=== PATIENT | male | born 1995 ===

== ENCOUNTER 2019-05-26 10:21 | Emergency (ER) | payer BC ==
--- OUTSIDE RECORDS SUMMARY | 2019-05-26 10:32 | XMS REPORT ---
:1995 Author Organization [facility] Care Team Providers Name Role Phone CHAR PINEDA Primary Care Physician Unavailable Allergies, Adverse Reactions, Alerts Allergy Code CodeSystem Reaction Severity Criticality Status Start Substance Date Moderate Medications Medication Medication Medication Start Stop Route Dose Status Fill Code CodeSystem Date Date Instructions Lexapro 046381 RxNorm 2019-01 oral 10 mg 1 active Take 1 tablet -21 tablet by mouth once once a a day for 30 day day(s) Problems Problem Name Code CodeSystem Alternate Alternate Start End Status Narrative Code CodeSystem Date Date Depressive 11668137 SNOMED-CT Active episode, 3- unspecified Depressive 72085022 SNOMED-CT Active episode, 3-22 unspecified Unspecified 84515210 SNOMED-CT 2018-03 Active anxiety -19 disorder Relevant diagnostic tests/laboratory data Narrative No Information Procedures Procedure Code CodeSystem Target Date of Status Service Device Device Device Name Site Procedure Delivery Code Name UID Location Psychotherap [id number] SNOMED-CT () 2018-06-18 complete Mental y, 45 04 d Health- minutes with [address], [id number] [id number] SNOMED-CT () 2018-11-13 complete Mental d Health- [address], [id number] [phone] SNOMED-CT () 2019-03-26 complete Mental d Health- [address], [id number] [phone] Psychotherap [id number] SNOMED-CT () 2018-09-05 complete Mental y, 45 04 d Health- minutes with [address], [id number] [phone] SNOMED-CT () 2019-01-15 complete Mental d Health- [facility], [phone] [phone] Office [place] [id number] SNOMED-CT () 2019-02-26 complete Mental other 6 d Health- outpatient [facility]elle visit for [address], [facility], established [id number] patient, [phone] which requires at least 2 of these 3 culver components: A problem focused history; A problem focused examination; Straightforw sari medical decision making. Counselin Office or [id number] SNOMED-CT () 2019-04-23 complete Mental other 6 d Health- outpatient [facility] visit for [address], [facility], established [id number] patient, [phone] which requires at least 2 of these 3 culver components: A problem focused history; A problem focused examination; Straightforw sari medical decision making. Counselin SNOMED-CT () 2018-12-11 complete Mental d Health- [address], [id number] [phone] Psychotherap 794184 SNOMED-CT () 2018-07-11 complete Mental y, 45 04 d Health- minutes with [facility] patient [address], [phone] [phone] SNOMED-CT () 2018-07-30 complete Mental d Health- [address], [id number] [phone] SNOMED-CT () 2018-08-22 complete Mental d Health- [address], [id number] [phone] Psychotherap [id number] SNOMED-CT () 2019-01-01 complete Mental y, 45 04 d Health- minutes with [facility] patient [address], [id number] [phone] SNOMED-CT () 2018-06-11 complete Mental d Health- [address], [id number] [phone] Psychiatric 547081 SNOMED-CT () 2019-01-31 complete Mental diagnostic 85 d Health- evaluation [facility] with medical [address], [phone] [phone] SNOMED-CT () 2018-11-27 complete Mental d Health[address], [id number] [phone] Psychotherap 702473 SNOMED-CT () 2018-06-25 complete Mental y, 45 04 d Health- minutes with [address], [id number] [phone] SNOMED-CT () 2018-08-29 complete Mental d Health- [address], [id number] [id number] SNOMED-CT () 2018-07-20 complete Mental d Health[address], [id number] [phone] Psychotherap 360595 SNOMED-CT () 2019-04-02 complete Mental y, 45 04 d Health- minutes with [address], [id number] [phone] SNOMED-CT () 2018-11-20 complete Mental d Health- [address], [id number] [phone] SNOMED-CT () 2019-03-19 complete Mental d [address], [id number] [phone] SNOMED-CT () 2018-11-06 complete Mental d [address], [id number] [phone] Psychotherap 151672 SNOMED-CT () 2019-01-29 complete Mental y, 45 04 d Health- minutes with [address], [id number] [phone] SNOMED-CT () 2018-12-18 complete Mental d [address], 626773588 [phone] SNOMED-CT () 2019-04-30 complete Mental d Health[address], [id number] [phone] SNOMED-CT () 2018-12-04 complete Mental d Health[address], [id number] [phone] Office or [id number] SNOMED-CT () 2019-03-26 complete Mental other 6 d Health- outpatient [facility] visit for [address], of an [place], established [id number] patient, [phone] which requires at least 2 of these 3 culver components: A problem focused history; A problem focused examination; Straightforw sari medical decision making. Counselin SNOMED-CT () 2019-01-08 complete Mental d Health- [address], [phone] SNOMED-CT () 2019-02-19 complete Mental d Health- [address], [id number] [phone] Psychotherap [id number] SNOMED-CT () 2019-02-26 complete Mental y, 45 04 d Health- minutes with [facility] patient [address], [id number] [phone] SNOMED-CT () 2018-08-08 complete Mental d Health- [address], [id number] [id number] Psychotherap 618742 SNOMED-CT () 2018-10-30 complete Mental y, 45 04 d Health- minutes with [facility] patient [address], [phone] [phone] Psychotherap 841073 SNOMED-CT () 2019-02-12 complete Mental y, 45 04 d Health- minutes with [facility] patient [address], [phone] [phone] Encounters/Encounter Diagnoses Encounter Name Encounter Diagnosis Diagnosis Diagnosis Date of Service Code Code Name CodeSystem Diagnosis Delivery Location Psychotherapy - [id number] Depressive SNOMED-CT 2019-05-14 Behavioral Individual 30 episode, Health min unspecified Clinic , , , Vital Signs No Information Social History Element Description Description Start End Code CodeSystem AdditionalInfo Date Date SexAssignedAtBirth Male 1996-0 M AdministrativeGender 10-06 Hospital Discharge Instructions Reason For Referral Medical Equipment FDA Assessments
--- OUTSIDE RECORDS SUMMARY | 2019-05-26 10:32 | XMS REPORT ---
:1995 Author Organization [facility] Care Team Providers Name Role Phone CHAR PINEDA Primary Care Physician Unavailable Allergies, Adverse Reactions, Alerts Allergy Code CodeSystem Reaction Severity Criticality Status Start Substance Date Moderate Medications Medication Medication Medication Start Stop Route Dose Status Fill Code CodeSystem Date Date Instructions Lexapro 611074 RxNorm 2019-01 oral 10 mg 1 active Take 1 tablet -21 tablet by mouth once once a a day for 30 day day(s) Problems Problem Name Code CodeSystem Alternate Alternate Start End Status Narrative Code CodeSystem Date Date Unspecified [id number] SNOMED-CT 2018-03 Active anxiety 1-19 disorder Depressive 09064271 SNOMED-CT Active episode, 3-22 unspecified Depressive 25342798 SNOMED-CT Active episode, 3-22 unspecified Relevant diagnostic tests/laboratory data Narrative No Information Procedures Procedure Code CodeSystem Target Date of Status Service Device Device Device Name Site Procedure Delivery Code Name UID Location SNOMED-CT () 2019-01-15 complete Mental d Health- [address], [id number] SNOMED-CT () 2018-11-13 complete Mental d Health- [address], [id number] [phone] Psychotherap 085324 SNOMED-CT () 2018-06-18 complete Mental y, 45 04 d Health- minutes with [address], [id number] [phone] Psychotherap [id number] SNOMED-CT () 2018-09-05 complete Mental y, 45 04 d Health- minutes with [address], [id number] [phone] Office or [id number] SNOMED-CT () 2019-02-26 complete Mental other 6 d Health- outpatient [facility] visit for [address], established [phone] patient, [phone] which requires at least 2 of these 3 culver components: A problem focused history; A problem focused examination; Straightforw sari medical decision making. Edyin SNOMED-CT () 2019-03-26 complete Mental d Health- [address], [id number] [phone] SNOMED-CT () 2019-02-19 complete Mental d Health- [address], [phone] SNOMED-CT () 2018-12-04 complete Mental d Health[address], 422720494 [phone] SNOMED-CT () 2019-01-08 complete Mental d Health[address], [id number] [phone] Psychotherap 403153 SNOMED-CT () 2019-02-26 complete Mental y, 45 04 d Health- minutes with [facility] patient [address], [id number] [phone] Office or [id number] SNOMED-CT () 2019-03-26 complete Mental other 6 d Health- outpatient [facility]elle visit for [address], established [phone] patient, [phone] which requires at least 2 of these 3 culver components: A problem focused history; A problem focused examination; Straightforw sari medical decision making. Edyin SNOMED-CT () 2018-06-11 complete Mental d Health[address], [id number] [phone] Psychotherap 366710 SNOMED-CT () 2018-06-25 complete Mental y, 45 04 d Health- minutes with [facility] patient [address], [id number] [phone] SNOMED-CT () 2018-11-27 complete Mental d Health[address], [id number] [phone] SNOMED-CT () 2018-08-29 complete Mental d Health[address], [id number] [phone] Psychiatric 686441 SNOMED-CT () 2019-01-31 complete Mental diagnostic 85 d Health- evaluation [address], [phone] Psychotherap 661728 SNOMED-CT () 2019-02-12 complete Mental y, 45 04 d Health- minutes with [address], [id number] [phone] Psychotherap 579389 SNOMED-CT () 2018-10-30 complete Mental y, 45 04 d Health- minutes with [address], [id number] [phone] SNOMED-CT () 2018-08-08 complete Mental d [address], [id number] [phone] SNOMED-CT () 2018-11-06 complete Mental d [address], [id number] [phone] SNOMED-CT () 2018-12-18 complete Mental d [address], [id number] [phone] Psychotherap 610025 SNOMED-CT () 2019-01-29 complete Mental y, 45 04 d Health- minutes with [address], [id number] [phone] SNOMED-CT () 2018-08-22 complete Mental d [address], [id number] [phone] Psychotherap 833363 SNOMED-CT () 2019-01-01 complete Mental y, 45 04 d Health- minutes with [address], [id number] [phone] SNOMED-CT () 2018-07-30 complete Mental d [address], [phone] [phone] Office or [id number] SNOMED-CT () 2019-04-23 complete Mental other 6 d Health- outpatient [facility] visit for [address], of an [facility] established [phone] patient, [phone] which requires at least 2 of these 3 culver components: A problem focused history; A problem focused examination; Straightforw sari medical decision making. Counselin Psychotherap 230120 SNOMED-CT () 2018-07-11 complete Mental y, 45 04 d Health- minutes with [facility] patient [address], [phone] SNOMED-CT () 2018-12-11 complete Mental d Health- [address], [id number] [phone] SNOMED-CT () 2018-11-20 complete Mental d Health- [address], [id number] [phone] SNOMED-CT () 2018-07-20 complete Mental d Health- [address], [id number] [phone] SNOMED-CT () 2019-03-19 complete Mental d Health- [address], [phone] Psychotherap 430604 SNOMED-CT () 2019-04-02 complete Mental y, 45 04 d Health- minutes with [facility] patient [address], [phone] [phone] Encounters/Encounter Diagnoses Encounter Name Encounter Diagnosis Diagnosis Diagnosis Date of Service Code Code Name CodeSystem Diagnosis Delivery Location [facility] [id number] Depressive SNOMED-CT 2019-04-23 Behavioral Established episode, Health patient 10 unspecified Clinic [address] [place], [place], [id number] Vital Signs No Information Social History Element Description Description Start End Code CodeSystem AdditionalInfo Date Date SexAssignedAtBirth Male 1996-0 M AdministrativeGender 10-06 Hospital Discharge Instructions Reason For Referral Medical Equipment FDA Assessments
--- OUTSIDE RECORDS SUMMARY | 2019-05-26 10:32 | XMS REPORT ---
:1995 Author Organization [facility] Care Team Providers Name Role Phone CHAR PINEDA Primary Care Physician Unavailable Allergies, Adverse Reactions, Alerts Allergy Code CodeSystem Reaction Severity Criticality Status Start Substance Date Moderate Medications Medication Medication Medication Start Stop Route Dose Status Fill Code CodeSystem Date Date Instructions Lexapro 289077 RxNorm 2019-01 oral 10 mg 1 active Take 1 tablet -21 tablet by mouth once once a a day for 30 day day(s) Problems Problem Name Code CodeSystem Alternate Alternate Start End Status Narrative Code CodeSystem Date Date Depressive 31138199 SNOMED-CT Active episode, 06-01 unspecified Unspecified 03696761 SNOMED-CT 2018-03 Active anxiety 1-19 disorder Depressive 90281573 SNOMED-CT Active episode, 3-22 unspecified Relevant diagnostic tests/laboratory data Narrative No Information Procedures Procedure Code CodeSystem Target Date of Status Service Device Device Device Name Site Procedure Delivery Code Name UID Location Psychotherap [id number] SNOMED-CT () 2019-01-01 complete Mental y, 45 04 d Health- minutes with [address], [id number] [phone] Psychotherap [id number] SNOMED-CT () 2018-06-18 complete Mental y, 45 04 d Health- minutes with [address], [phone] Psychotherap 621579 SNOMED-CT () 2018-06-25 complete Mental y, 45 04 d Health- minutes with [address], [id number] [phone] Psychotherap 450905 SNOMED-CT () 2018-07-11 complete Mental y, 45 04 d Health- minutes with [address], [id number] [phone] Psychotherap 384650 SNOMED-CT () 2018-09-05 complete Mental y, 45 04 d Health- minutes with [facility] patient [address], [phone] [phone] Psychotherap 215884 SNOMED-CT () 2018-10-30 complete Mental y, 45 04 d Health- minutes with [facility] patient [address], [id number] [phone] Psychotherap 633690 SNOMED-CT () 2019-04-02 complete Mental y, 45 04 d Health- minutes with [facility] patient [address], [phone] [phone] Psychotherap 540487 SNOMED-CT () 2019-02-26 complete Mental y, 45 04 d Health- minutes with [facility] patient [address], [id number] [phone] Psychotherap 066639 SNOMED-CT () 2019-02-12 complete Mental y, 45 04 d Health- minutes with [facility] patient [address], [id number] [phone] Psychotherap 527418 SNOMED-CT () 2019-01-29 complete Mental y, 45 04 d Health- minutes with [facility] patient [address], [phone] [phone] Psychiatric 543096 SNOMED-CT () 2019-01-31 complete Mental diagnostic 85 d Health- evaluation [facility] with [address], [id number] [phone] Office or [id number] SNOMED-CT () 2019-02-26 complete Mental other 6 d Health- outpatient [facility] visit for [address], of an [place], established [id number] patient, [phone] which requires at least 2 of these 3 culver components: A problem focused history; A problem focused examination; Straightforw sari medical decision making. Counselin SNOMED-CT () 2019-01-15 complete Mental d Health- [address], [phone] [phone] SNOMED-CT () 2019-01-08 complete Mental d Health[address], [id number] [phone] SNOMED-CT () 2019-02-19 complete Mental d Health[address], [id number] [phone] SNOMED-CT () 2019-03-19 complete Mental d Health[address], [id number] [phone] SNOMED-CT () 2018-07-20 complete Mental d Health[address], [id number] [phone] SNOMED-CT () 2018-07-30 complete Mental d [address], 509529339 [phone] SNOMED-CT () 2018-12-04 complete Mental d [address], 928156956 [phone] SNOMED-CT () 2018-12-11 complete Mental d Health[address], 900102953 [phone] SNOMED-CT () 2018-12-18 complete Mental d [address], 518356450 [phone] SNOMED-CT () 2018-11-06 complete Mental d [address], 794738749 [phone] SNOMED-CT () 2018-11-13 complete Mental d Health[address], 715029711 [phone] SNOMED-CT () 2018-08-08 complete Mental d Health[address], 494705615 [phone] SNOMED-CT () 2018-08-22 complete Mental d [address], 192033848 [phone] SNOMED-CT () 2018-08-29 complete Mental d [address], [id number] [phone] SNOMED-CT () 2018-06-11 complete Mental d [facility] [address] [place], [place], [address] [phone] SNOMED-CT () 2018-11-20 complete Mental d [facility] [address] [place], [place], [address] [phone] SNOMED-CT () 2018-11-27 complete Mental d [address], [phone] Encounters/Encounter Diagnoses Encounter Name Encounter Diagnosis Diagnosis Diagnosis Date of Service Code Code Name CodeSystem Diagnosis Delivery Location Psychotherapy 80944 [id number] Depressive SNOMED-CT 2019-04-02 Behavioral Individual 30 episode, Health min unspecified Clinic [address] [place], [place], [id number] Vital Signs No Information Social History Element Description Description Start End Code CodeSystem AdditionalInfo Date Date SexAssignedAtBirth Male 1996-0 M AdministrativeGender 10-06 Hospital Discharge Instructions Reason For Referral Medical Equipment FDA Assessments
--- OUTSIDE RECORDS SUMMARY | 2019-05-26 10:33 | XMS REPORT ---
:1995 Author Organization [facility] Care Team Providers Name Role Phone Rekha Villafana Primary Care Physician Unavailable Allergies, Adverse Reactions, Alerts Allergy Code CodeSystem Reaction Severity Criticality Status Start Substance Date Moderate Medications Medication Medication Medication Start Stop Route Dose Status Fill Code CodeSystem Date Date Instructions Lexapro 921574 RxNorm 2019-01 oral 10 mg 1 active Take 1 tablet -21 tablet by mouth once once a a day for 30 day day(s) Problems Problem Name Code CodeSystem Alternate Alternate Start End Status Narrative Code CodeSystem Date Date Depressive 98147492 SNOMED-CT Active episode, - unspecified Depressive 00304851 SNOMED-CT Active episode, -22 unspecified Unspecified 02048490 SNOMED-CT 2018-03 Active anxiety -19 disorder Relevant diagnostic tests/laboratory data Narrative No Information Procedures Procedure Code CodeSystem Target Date of Status Service Device Device Device Name Site Procedure Delivery Code Name UID Location Psychotherap [id number] SNOMED-CT () 2019-01-01 complete Mental y, 45 04 d Health- minutes with [address], [id number] [phone] Psychotherap [id number] SNOMED-CT () 2018-06-18 complete Mental y, 45 04 d Health- minutes with [address], [id number] [phone] Psychotherap 408401 SNOMED-CT () 2018-06-25 complete Mental y, 45 04 d Health- minutes with [address], [id number] [phone] Psychotherap 319786 SNOMED-CT () 2018-07-11 complete Mental y, 45 04 d Health- minutes with [address], [id number] [phone] Psychotherap 634483 SNOMED-CT () 2018-09-05 complete Mental y, 45 04 d Health- minutes with [facility] patient [address], [id number] [phone] Psychotherap 066443 SNOMED-CT () 2018-10-30 complete Mental y, 45 04 d Health- minutes with [facility] patient [address], [id number] [phone] Psychotherap 525080 SNOMED-CT () 2019-02-26 complete Mental y, 45 04 d Health- minutes with [facility] patient [address], [id number] [phone] Psychotherap 864438 SNOMED-CT () 2019-02-12 complete Mental y, 45 04 d Health- minutes with [facility] patient [address], [id number] [phone] Psychotherap 152802 SNOMED-CT () 2019-01-29 complete Mental y, 45 04 d Health- minutes with [facility] patient [address], [id number] [phone] Psychiatric 877216 SNOMED-CT () 2019-01-31 complete Mental diagnostic 85 d Health- evaluation [facility] with [address], [phone] Office or [id number] SNOMED-CT () 2019-02-26 complete Mental other 6 d Health- outpatient [facility] visit for [address], of an [place], established [phone] patient, [phone] which requires at least 2 of these 3 culver components: A problem focused history; A problem focused examination; Straightforw sari medical decision making. Counselin SNOMED-CT () 2019-01-15 complete Mental d Health- [address], [phone] [phone] SNOMED-CT () 2019-01-08 complete Mental d Health- [address], [id number] [phone] SNOMED-CT () 2019-02-19 complete Mental d Health- [address], 336808745 [phone] SNOMED-CT () 2018-07-20 complete Mental d [address], 998153949 [phone] SNOMED-CT () 2018-07-30 complete Mental d [address], 257342670 [phone] SNOMED-CT () 2018-08-08 complete Mental d Health[address], 923748922 [phone] SNOMED-CT () 2018-12-11 complete Mental d [address], 441134044 [phone] SNOMED-CT () 2018-12-18 complete Mental d [address], [id number] [phone] SNOMED-CT () 2018-11-06 complete Mental d Health[address], 202035868 [phone] SNOMED-CT () 2018-11-13 complete Mental d Health[address], 828966809 [phone] SNOMED-CT () 2018-08-22 complete Mental d [address], 174903802 [phone] SNOMED-CT () 2018-08-29 complete Mental d [address], [id number] [phone] SNOMED-CT () 2018-06-11 complete Mental d [address], [id number] [phone] SNOMED-CT () 2018-11-20 complete Mental d Health[address], 321582476 [phone] SNOMED-CT () 2018-11-27 complete Mental d [address], 732127838 [phone] SNOMED-CT () 2018-12-04 complete Mental d [address] [place], [place], [address] [phone] Encounters/Encounter Diagnoses Encounter Name Encounter Diagnosis Diagnosis Diagnosis Date of Service Code Code Name CodeSystem Diagnosis Delivery Location [facility] 39260 [id number] Depressive SNOMED-CT 2019-02-26 Behavioral Established episode, Health patient 10 unspecified Clinic [address] [place], [place], [phone] Vital Signs No Information Social History Element Description Description Start End Code CodeSystem AdditionalInfo Date Date SexAssignedAtBirth Male 1995-0 M AdministrativeGender 10-06 Hospital Discharge Instructions Reason For Referral Medical Equipment FDA Assessments
[2019-05-26 10:37] VITALS: BP 98/65
--- NOTE | 2019-05-26 11:23 | UC ---
Lower Extremity/Ankle HPI - HPI Summary HPI Summary: was playing with dog last night and twisted L ankle, had immediate pain, applied ice and used aura wrap, was ambulatory after injury but very painful - History of Current Complaint Chief Complaint: UCLowerExtremity Stated Complaint: LEFT ANKLE INJURY Time Seen by Provider: 05/26/19 11:12 Hx Obtained From: Patient Onset/Duration: Sudden Onset Severity Initially: Severe Severity Currently: Severe Pain Intensity: 8 Aggravating Factor(s): Standing, Ambulation Alleviating Factor(s): Rest, Elevation, Ice Able to Bear Weight: Yes - with pain - Allergies/Home Medications Allergies/Adverse Reactions: Allergies Allergy/AdvReac Type Severity Reaction Status Date / Time No Known Allergies Allergy Verified 05/26/19 10:37 Home Medications: Home Medications NK [No Home Medications Reported] 06/05/14 [History Confirmed 06/05/14] PMH/Surg Hx/FS Hx/Imm Hx Previously Healthy: Yes - Surgical History Surgical History: Yes Surgery Procedure, Year, and Place: rotator cuff surgery r shoulder - Family History Known Family History: Positive: None - Social History Occupation: Employed Full-time Lives: With Family Alcohol Use: None Substance Use Type: Marijuana Smoking Status (MU): Current Some Day Smoker Type: Cigars Household Exposure Type: Cigarettes Cessation Counseling: Patient Advised to Stop Review of Systems All Other Systems Reviewed And Are Negative: Yes Constitutional: Positive: Negative Respiratory: Positive: Negative Cardiovascular: Positive: Negative Musculoskeletal: Negative: Decreased ROM - pain with ROM Psychological: Positive: Negative Is Patient Immunocompromised?: No Physical Exam Triage Information Reviewed: Yes Appearance: Well-Appearing, No Pain Distress, Well-Nourished Vital Signs: Initial Vital Signs Temp 97.4 F 05/26/19 10:33 Pulse 77 05/26/19 10:33 Resp 16 05/26/19 10:33 BP 98/65 05/26/19 10:33 Pulse Ox 99 05/26/19 10:33 Vital Signs Reviewed: Yes Respiratory Exam: Normal Respiratory: Positive: Lungs clear Cardiovascular Exam: Normal Cardiovascular: Positive: RRR Musculoskeletal: Positive: Strength Intact, ROM Intact, Other: - pain with ROM/ weight bearing L lateral ankle Neurological Exam: Normal Psychological Exam: Normal Skin Exam: Normal, Other - no ecchymosis Diagnostics - Radiology No standard instances Radiology Interpretation Completed By: Radiologist Lower Extremity Course/Dx - Differential Dx/Diagnosis Differential Diagnosis/HQI/PQRI: Contusion, Fracture (Closed), Sprain, Strain Provider Diagnosis: Ankle sprain Discharge ED - Sign-Out/Discharge Documenting (check all that apply): Patient Departure All imaging exams completed and their final reports reviewed: Yes - Discharge Plan Condition: Good Disposition: HOME Patient Education Materials: Ankle Sprain (DC) Referrals: Kristopher Garcia MD [Primary Care Provider] - Colton Ferreira MD [Medical Doctor] - 2 Weeks (if symptoms not resolving) Additional Instructions: ice and elevate ankle use aura, splint and crutches for next week - then just ankle splint for 2-3 weeks use ibuprofen as directed for pain - Billing Disposition and Condition Condition: GOOD Disposition: Home
== END 2019-05-26 11:45 | disposition home or self-care (01) ==
LOC: UCEAST 10:21
DX: S93.402A Sprain of unspecified ligament of left ankle, initial encounter (principal); X50.9XXA Other and unspecified overexertion or strenuous movements or postures, initial encounter; Y92.9 Unspecified place or not applicable; F17.290 Nicotine dependence, other tobacco product, uncomplicated
CPT/HCPCS: 99203; G0463

== ENCOUNTER 2020-05-12 11:41 | Inpatient (IN) ==
[2020-05-12 13:14] LABS: Urine Appearance Cloudy; Urine Bilirubin Negative (Negative); Urine Blood Negative (Negative); Urine Color Yellow; Urine Glucose Negative (Negative); Urine Ketones Negative (Negative); Urine Nitrite Negative (Negative); Urine Protein Negative (Negative); Urine Specific Gravity 1.013 (1.010-1.030); Urine Urobilinogen Negative (Negative)
[2020-05-12 13:16] LABS: Urine Benzodiazepine Screen None Detected (None Detect); Urine Cannabinoids Screen Presumptive Positive (None Detect); Urine Opiates Screen None Detected (None Detect)
[2020-05-12] MEDS ORDERED: Al Hydrox/Mg Hydrox/Simet LIQ 30 ML UDC PO PRN (14:18)
[2020-05-12 14:40] LABS: ABS Basophils 0.1 10^3/ul (0-0.2); ABS Eosinophils 0.1 10^3/ul (0-0.6); ABS Lymphocytes 1.4 10^3/ul (1.0-4.8); ABS Monocytes 0.4 10^3/ul (0-0.8); ABS Neutrophils 3.1 10^3/ul (1.5-7.7); Eosinophil % 1.2 %; Hematocrit 44 % (42-52); Hemoglobin 15.1 g/dL (14.0-18.0); Lymphocyte % 27.5 %; Mean Corpuscular HGB Conc 35 g/dL (31-36); Mean Corpuscular Hemoglobin 31 pg (27-31); Mean Corpuscular Volume 90 fL (80-94); Mean Platelet Volume 8.8 fL (7.4-10.4); Platelet Count 234 10^3/uL (150-450); Red Blood Count 4.88 10^6 /uL (4.18-5.48); Red Cell Distribution Width 14 % (10-15)
[2020-05-12 14:58] LABS: TSH Ultra Thyroid Stim Horm 0.87 mcIU/mL (0.34-5.60)
[2020-05-12 15:09] LABS: HIV 4th Generation Nonreactive (Nonreactive)
[2020-05-12 15:20] LABS: ALT 14 U/L (7-52); AST 21 U/L (13-39); Albumin 4.7 g/dL (3.2-5.2); Albumin/Globulin Ratio 1.7 (1-3); Alkaline Phosphatase 41 U/L (34-104); Anion Gap 8 mmol/L (2-11); BUN/Creatinine Ratio 18.2 (8-20); Blood Urea Nitrogen 16 mg/dL (6-24); CO2 Carbon Dioxide 28 mmol/L (22-32); Calcium 9.6 mg/dL (8.6-10.3); Chloride 105 mmol/L (101-111); EGFR African American 126.7 (>60); EGFR Non-African American 104.7 (>60); Globulin 2.8 g/dL (2-4); Glucose 86 mg/dL (70-100); Potassium 4.6 mmol/L (3.5-5.0); Sodium 141 mmol/L (135-145); Total Protein 7.5 g/dL (6.4-8.9)
[2020-05-12 15:22] LABS: Acetaminophen < 15 mcg/mL; Alcohol, S < 10 mg/dL (<10); Salicylate < 2.50 mg/dL (<30)
[2020-05-12] MEDS: Vitamin THERAPEUTIC TAB PO SCH (20:51)
[2020-05-12] MEDS: Nicotine PATCH 14 MG/24 HR PATCH TRANSDERM SCH (20:51)
[2020-05-13] MEDS: Nicotine PATCH 14 MG/24 HR PATCH TRANSDERM SCH (15:39)
[2020-05-13] MEDS: Vitamin THERAPEUTIC TAB PO SCH (15:39)
[2020-05-14] MEDS: Nicotine PATCH 14 MG/24 HR PATCH TRANSDERM SCH (07:52)
[2020-05-14] MEDS: Vitamin THERAPEUTIC TAB PO SCH (07:52)
[2020-05-15 08:03] LABS: HDL Cholesterol 54.9 mg/dL
[2020-05-15] MEDS: Nicotine PATCH 14 MG/24 HR PATCH TRANSDERM SCH (08:05)
[2020-05-15] MEDS: Vitamin THERAPEUTIC TAB PO SCH (08:05)
[2020-05-16] MEDS: Vitamin THERAPEUTIC TAB PO SCH (08:26)
[2020-05-16] MEDS: Nicotine PATCH 14 MG/24 HR PATCH TRANSDERM SCH (08:28)
[2020-05-17] MEDS: Nicotine PATCH 14 MG/24 HR PATCH TRANSDERM SCH (07:36)
[2020-05-17] MEDS: Vitamin THERAPEUTIC TAB PO SCH (07:36)
[2020-05-18 08:08] VITALS: BP 138/79
[2020-05-18] MEDS: Nicotine PATCH 14 MG/24 HR PATCH TRANSDERM SCH (08:20)
[2020-05-18] MEDS: Vitamin THERAPEUTIC TAB PO SCH (08:21)
== END 2020-05-18 12:05 | disposition home or self-care (01) | DRG 751 ==
LOC: ED 11:41 → BSU 14:18
PROVIDERS: ADMIT Psychiatry & Neurology Psychiatry; ATTEND Psychiatry & Neurology Psychiatry